=== PATIENT | male | born 1950 | race African-American/Black ===

== ENCOUNTER 2019-01-31 22:20 | Emergency (ER) | payer SELFPAY ==
[~2019-01-31] VITALS: Ht 188 cm; Wt 77.0 kg
[2019-02-01] MEDS ORDERED: METOCLOPRAMIDE HCL 10MG TABLET PO ONE (00:30)
[2019-02-01 01:18] VITALS: BP 174/89
== END 2019-02-01 01:18 | disposition home or self-care (01) ==
LOC: ER 22:20
DX: R06.6 Hiccough (principal); R03.0 Elevated blood-pressure reading, without diagnosis of hypertension
CPT/HCPCS: 99282; J8597

== ENCOUNTER 2019-02-01 20:36 | Emergency (ER) | payer SELFPAY ==
[~2019-02-01] VITALS: Ht 182.9 cm; Wt 76.0 kg
[2019-02-01 21:56] VITALS: BP 189/92
== END 2019-02-01 23:03 | disposition left against medical advice (07) ==
LOC: ER 20:36
DX: Z53.21 Procedure and treatment not carried out due to patient leaving prior to being seen by health care provider (principal)